=== PATIENT | female | born 1990 | race Caucasian/White ===

== ENCOUNTER 2020-05-19 17:13 | Outpatient (CLI) | payer MEDICAID ==
[~2020-05-19] VITALS: Ht 170.2 cm; Wt 98.6 kg
--- NOTE | 2020-05-19 17:20 | NUR ---
1720- Pt arrives on unit via wheelchair with complaints of an episode of 15mins of sharp abd pain. She is now having generalized abd pain. Pt into bathroom to change into gown and provide urine sample. 172- Pt into bed. EFM and TOCO on and tracing. Pt denies VB, LOF, UCs. Pt states she hasn't felt the baby move since this morning. VSS, Assessment completed. Call light in reach.
[2020-05-19 17:22] VITALS: BP 123/88; PULSE 96; TEMP 98.5
[2020-05-19] MEDS ORDERED: PROBIOTIC ACID1 EAC3 PO (17:31)
[2020-05-19] MEDS ORDERED: PRENATAL TABLET PO (17:31)
[2020-05-19 18:17] LABS: COLLECTION METHOD CLEAN CATCH
--- NOTE | 2020-05-19 18:20 | NUR ---
182- BEDSIDE SHIFT REPORT RECEIVED, CARE ASSUMED. PT SITTING UP IN BED WITH AT BEDSIDE, PLAN OF CARE REVIEWED, SVE BY THIS NURSE CLOSED/THICK/HIGH. 1849- DIFFICULT TO MONITOR DUE TO GESTATION AND MATERNAL POSITION CHANGE. NURSE AT BEDSIDE ADJUSTING MONITORS. 1854- PT UP TO BATHROOM. 1857- PT BACK IN BED. NURSE AT BEDSIDE ADJUSTING MONITORS. LOTS OF MOVEMENT NOTED. PT REPORTS IMPROVEMENT IN ABDOMINAL PAIN BUT STATES SHE DOES STILL HAVE SOME DISCOMFORT IN HER BACK. 1911- DR BETH CALLS AND IS UPDATED CHARTED IN PHYSICIAN NOTIFICATION. ORDERS RECEIVED. 1919- PT OFF MONITORS FOR DISMISSAL. 1929- DISMISSAL INSTRUCTIONS GIVEN AND PT VERBALIZES UNDERSTANDING. LABOR PRECAUTIONS DISCUSSED. PT DISMISSED TO HOME AMBULATORY ACCOMPANIED BY .
[2020-05-19 18:34] LABS: HEMOGLOBIN 10.8 g/dl (12.5-16.0); MEAN CELL VOLUME 80 fl (80.0-100.0); MEAN CORPUSCULAR HEMOGLOBIN 26 pg (27.0-31.0); MEAN CORPUSCULAR HGB CONC 32 g/dl (33.0-37.0); MEAN PLATELET VOLUME 9.1 fl (7.4-10.4); PLATELET COUNT 341 K/mm3 (130-400); REDCELL DISTRIBUTION WIDTH-CV 13.1 % (11.5-14.5)
[2020-05-19 18:37] LABS: HEMATOCRIT 33.4 % (37.0-47.0)
[2020-05-19 18:44] LABS: MUCOUS Present /lpf; PH 7 (5-8); URINE APPEARANCE Cloudy; URINE BACTERIA None Seen /hpf; URINE BILIRUBIN Negative (NEGATIVE); URINE BLOOD Negative (NEGATIVE); URINE COLOR Yellow; URINE GLUCOSE Negative (NEGATIVE); URINE KETONE Negative (NEGATIVE); URINE LEUKOCYTE ESTERASE Negative (NEGATIVE); URINE NITRATE Negative (NEGATIVE); URINE PROTEIN(semi-quant) 1+ (NEGATIVE); URINE RBC None Seen /hpf; URINE UROBILINOGEN Negative (NEGATIVE)
[2020-05-19 18:56] LABS: ALBUMIN 3.9 gm/dL (3.5-5.0); BILIRUBIN,TOTAL 0.2 mg/dL (0.0-1.0); CALCIUM 8.9 mg/dL (8.4-10.2); CREATININE, serum 0.63 (0.52-1.25); POTASSIUM 3.9 mmol/L (3.4-5.0); TOTAL PROTEIN 7.2 gm/dL (6.4-8.2)
[2020-05-19 19:34] LABS: BAND 3 % (0-10); EOSINOPHIL 3 % (0-4); LYMPHOCYTE 25 % (20.0-51.0); MICROCYTOSIS 1+; NEUTROPHILS 63 % (42.0-75.2)
[2020-05-19 19:35] LABS: BURR CELLS 2+; HYPOCHROMIA 1+; PLATELET ESTIMATE NORMAL (NORMAL)
== END 2020-05-19 19:30 | disposition home or self-care (01) ==
LOC: LDRO 17:13 → COL.ER 17:13 → EDSTATUS 17:14 → LDR 17:45 → LDRO 19:30
PROVIDERS: Obstetrics & Gynecology
DX: O26.893 Other specified pregnancy related conditions, third trimester (principal); R10.9 Unspecified abdominal pain; Z3A.28 28 weeks gestation of pregnancy; F17.210 Nicotine dependence, cigarettes, uncomplicated
CPT/HCPCS: OP

== ENCOUNTER → 2020-05-19 | Outpatient (CLI) | payer MEDICAID ==
[~2020-05-19] MED LIST: PRENATAL TABLET PO; PROBIOTIC ACID1 EAC3 PO
== END ==
LOC: DIA.ED 08:31
DX: O24.419 Gestational diabetes mellitus in pregnancy, unspecified control (principal)
CPT/HCPCS: G0108

== ENCOUNTER → 2020-05-26 | Outpatient (CLI) | payer MEDICAID ==
[~2020-05-26] MED LIST changes: +PREDNISONE20 MG PO; +PRILOSEC 20MG20 MG PO; +PROAIR HFA0.09 MG/AC IH; +PROZAC 20MG20 MG PO; +ZITHROMAX Z PA250 MG PO
== END ==
LOC: DIA.ED 08:38
DX: O24.419 Gestational diabetes mellitus in pregnancy, unspecified control (principal); Z79.4 Long term (current) use of insulin
CPT/HCPCS: G0108

== ENCOUNTER → 2020-06-04 | Outpatient (CLI) | payer MEDICAID | LOC: DIA.ED 08:21 | DX: O24.419 Gestational diabetes mellitus in pregnancy, unspecified control (principal); Z79.4 Long term (current) use of insulin | CPT/HCPCS: G0108 ==

== ENCOUNTER → 2020-06-11 | Outpatient (CLI) | payer MEDICAID | LOC: DIA.ED | DX: O24.419 Gestational diabetes mellitus in pregnancy, unspecified control (principal); Z79.4 Long term (current) use of insulin | CPT/HCPCS: G0108 ==

== ENCOUNTER → 2020-06-23 | Outpatient (CLI) | payer MEDICAID | LOC: DIA.ED | DX: O24.419 Gestational diabetes mellitus in pregnancy, unspecified control (principal); Z79.4 Long term (current) use of insulin | CPT/HCPCS: G0108 ==

== ENCOUNTER → 2020-07-30 | Outpatient (CLI) | payer MEDICAID ==
[~2020-07-30] MED LIST changes: +HUMALOGKP50/50 SQ; +IBU600 MG PO; +LANTUS SOLOS100 U/ML SQ; +PERCOCET 325 MG1 TA3 PO
== END | disposition still patient (30) ==
LOC: ZCOL.LAB 03:08
DX: Z20.822 Contact with and (suspected) exposure to COVID-19 (principal)

== ENCOUNTER 2020-07-31 12:41 | Inpatient (IN) | payer MEDICAID ==
[2020-07-31] VITALS (43 sets, daily range): BP systolic 120–1277; BP diastolic 69–104; PULSE 81–110; TEMP 97.6–98
[~2020-07-31] VITALS: Ht 170.2 cm; Wt 105.9 kg
--- NOTE | 2020-07-31 12:15 | NUR ---
1215- 38.6, G1L0 arrives on unit from office with BPP 4/8 for extended monitoring. Patient report normal movement. Denies leaking of fluids, or vaginal bleeding. Reports occ painful contractions. Oriented to room. Changes into clean gown. Patient wedge left. EFM explained and applied. VS obtained. 1240- Roles on unit and updated on patient. 1245- Plan of care reviewed with patient and spouse who verbalize understanding. IV to left wrist. Routine labs obtained via IV site. NS infusing per orderes. Assessment completed. 1255- Roles to bedside. reviews plan of care withi patient and spouse. Dr. Quinn updated on BP's. 1315- Patient to bathroom. Wedge right.
[~2020-07-31 12:41] MED LIST changes: -HUMALOGKP50/50 SQ; -IBU600 MG PO; -LANTUS SOLOS100 U/ML SQ; -PERCOCET 325 MG1 TA3 PO
[2020-07-31] MEDS ORDERED: HUMALOGKP50/50 SQ (13:03)
[2020-07-31] MEDS ORDERED: LANTUS SOLOS100 U/ML SQ (13:03)
[2020-07-31 14:05] LABS: BASO % 0.4 % (0.0-2.0); EOS % 0.4 % (0-4.0); GRAN # 5.8 (1.4-6.5); GRAN % 70.4 % (42.2-75.2); HEMOGLOBIN 10.9 g/dl (12.5-16.0); LYMPH # 1.8 (1.2-3.4); LYMPH % 21.6 % (20.0-51.0); MEAN CELL VOLUME 70 fl (80.0-100.0); MEAN CORPUSCULAR HEMOGLOBIN 21 pg (27.0-31.0); MEAN CORPUSCULAR HGB CONC 30 g/dl (33.0-37.0); MEAN PLATELET VOLUME 9.9 fl (7.4-10.4); MONO # 0.5 (0.1-0.6); MONO % 6.3 % (1.7-9.3); PLATELET COUNT 395 K/mm3 (130-400); RED BLOOD COUNT 5.14 M/mm3 (4.10-5.30); REDCELL DISTRIBUTION WIDTH-CV 15.4 % (11.5-14.5)
[2020-07-31 14:06] LABS: HEMATOCRIT 36.1 % (37.0-47.0)
--- NOTE | 2020-07-31 14:10 | NUR ---
1410- Roles at bedside. SVE per provider . Orders to start pitocin per protocol. Dr. Quinn reviews plan of care with patient and spouse who verbalize understanding. Patient may have epidural as desires per MD.
--- NOTE | 2020-07-31 15:25 | NUR ---
1525- Patient requesting epidural. Niecy Marinelli MANAGEMENT SPECIALIST notified. 1532- Niecy Marinelli MANAGEMENT SPECIALIST at bedside for epiduralplacement. Time out performed. 1549- Epidural placed and single shot by Niecy Marinelli CRNA at this time. See anesthesia record. 1555- Patient wedge left. EFM adjusted. Plan of care and safety precautions reviewed with patient who verbalizes understanding. Denies questions or needs. Call light within reach. 1620- Branham catheter placed. SVE 0.5cm by this RN. Repositioned wedge left.
--- NOTE | 2020-07-31 16:40 | NUR ---
1640- Patient calls RN to room. States she felt gush of fluid. Clear fluid noted to pad. Amnitest positive.
--- NOTE | 2020-07-31 19:00 | NUR ---
blood sugar noted at 86
--- NOTE | 2020-07-31 20:05 | NUR ---
BGM 83
--- NOTE | 2020-07-31 21:30 | NUR ---
Roles at bedside. SVE per provider closed. Orders to continue to increase pitocin up to 30mU. Start abx ancef 2g at 0430 if unchanged. Every four hours ancef 1g after initial dose. Ok to check BS every 4 hours.
[2020-08-01] VITALS (50 sets, daily range): BP systolic 120–172; BP diastolic 59–108; PULSE 77–111; TEMP 97.6–98.6
--- NOTE | 2020-08-01 06:25 | NUR ---
Bedside report received from Moon AMBRIZ. Patient anxious and emotional at this time. Patient states she has been having pain in lower back/lower abdomen with every contraction since 0400am. Denies any needs at this time due to epidural being very difficult to place and states she can tolerate at this time. Plan of care discussed. 0710: FHR baseline 145bpm. Patient turned left lateral. FHR increasing to 155-160bpm. 0730: Patient sitting up in high fowlers position. 0755: Roles at bedside and assessing patient and FHR strip. SVE per physician /- and AROM of forebag at this time. Plan of care and options discussed at this time and questions answered. See physician documentation. 0820: Patient and Spouse decide for delivery at this time and pitocin off. Plan/risks of surgery discussed. Aramis TREVINO at bedside to assess patient and epidural dosed. See anesthesia record. Patient prepped for surgery. Superpubic area trimmed and cleaned/prepped. 0840: Patient off monitor and to OR via bed. Patient assisted to OR bed and spinal attempted. Plan for general anethesia discussed and patient agrees. See anesthesia record. 0915: FHR doppler and 150bpm.
[2020-08-02 04:00] VITALS: BP 122/69; PULSE 104; TEMP 98.7
[2020-08-02 07:32] LABS: HEMATOCRIT 26.9 % (37.0-47.0); HEMOGLOBIN 8.1 g/dl (12.5-16.0)
[2020-08-02 09:21] VITALS: BP 128/93; PULSE 99; TEMP 98.4
[2020-08-02 22:00] VITALS: BP 134/88; PULSE 96; TEMP 97.8
[2020-08-03 08:03] VITALS: BP 127/78; PULSE 105; TEMP 97.4
[2020-08-03] MEDS ORDERED: PERCOCET 325 MG1 TA3 PO (10:38)
[2020-08-03] MEDS ORDERED: IBU600 MG PO (10:38)
[2020-08-03 15:00] VITALS: BP 137/79; PULSE 102; TEMP 98.7
--- NOTE | 2020-08-03 17:30 | NUR ---
Sits in shower. Percocet 7/325 mg two, ibuprofen 600 mg given per request and as ordered.
--- NOTE | 2020-08-03 18:30 | NUR ---
PT COMPLAINS OF STABBING RUQ AND BACK PAIN. HYPOACTIVE BOWELS NOTED. STATES INABILITY TO PASS GAS BUT ONE TIME THROUGHOUT THE DAY. ABDOMEN IS FIRM AND DISTENDED, TENDER TO TOUCH. WILL NOTIFY ONCALL PHYSICIAN.
[2020-08-03 18:44] VITALS: BP 144/87; PULSE 124; TEMP 98.8
--- NOTE | 2020-08-03 20:25 | NUR ---
PT STATES THAT RIGHT UPPER QUADRANT PAIN IS GETTING MORE INTENSE. PO PAIN MEDICATION NOT YET AVAILABLE. SIMETHICONE AND K-PAD GIVEN FOR PAIN. PT STATES THAT SHE HAS ATTEMPTED TO USE THE BATHROOM TWICE SINCE SUPPOSITORY WAS PLACED BUT WAS STILL UNABLE TO HAVE BM AND DENIES PASSING GAS. INSTRUCTED PT THAT WE WILL WAIT APPROXIMATELY 30 MINUTES AND ATTEMPT TO USE BATHROOM AGAIN, IF AT THAT TIME PAIN HAS NOT IMPROVED AND NO BM I WILL CALL THE ONCALL PHYSICIAN TO REEVALUATE PLAN OF CARE.
--- NOTE | 2020-08-03 20:46 | NUR ---
UPON ENTERING THE ROOM PT IS MOANING IN PAIN AND STATES THAT HER LEFT LEG IS GOING NUMB. PT HAS BEEN LAYING ON HER LEFT SIDE SINCE SUPPOSITORY WAS PLACED, NUMBNESS ATTRIBUTED TO THIS. PT STATES SHE WOULD LIKE TO ATTEMPT TO BM AT THIS TIME. ASSISTED TO BATHROOM. WILL CALL DR. BAILEY WITH UPDATE.
[2020-08-03 21:00] VITALS: BP 153/95; PULSE 126
[2020-08-03 22:10] LABS: BASO % 0.3 % (0.0-2.0); EOS % 0.4 % (0-4.0); GRAN # 8.4 (1.4-6.5); GRAN % 79.1 % (42.2-75.2); LYMPH # 1.4 (1.2-3.4); LYMPH % 13.3 % (20.0-51.0); MEAN CELL VOLUME 72 fl (80.0-100.0); MEAN CORPUSCULAR HGB CONC 30 g/dl (33.0-37.0); MEAN PLATELET VOLUME 9.6 fl (7.4-10.4); MONO # 0.6 (0.1-0.6); MONO % 5.9 % (1.7-9.3); PLATELET COUNT 343 K/mm3 (130-400); RED BLOOD COUNT 3.71 M/mm3 (4.10-5.30); REDCELL DISTRIBUTION WIDTH-CV 16.1 % (11.5-14.5)
[2020-08-03 22:13] LABS: HEMATOCRIT 26.8 % (37.0-47.0); HEMOGLOBIN 7.9 g/dl (12.5-16.0); MEAN CORPUSCULAR HEMOGLOBIN 21 pg (27.0-31.0)
[2020-08-03 22:22] LABS: ALBUMIN 3.3 gm/dL (3.5-5.0); BILIRUBIN,TOTAL 0.3 mg/dL (0.0-1.0); CALCIUM 8.8 mg/dL (8.4-10.2); CREATININE, serum 0.64 (0.52-1.25); POTASSIUM 3.9 mmol/L (3.4-5.0); TOTAL PROTEIN 6.5 gm/dL (6.4-8.2)
--- NOTE | 2020-08-03 22:30 | NUR ---
X-RAY IN ROOM FOR PORTABLE FLAT AND UPRIGHT ABDOMINAL X-RAY.
--- NOTE | 2020-08-03 22:59 | NUR ---
PT UP TO BATHROOM TO ATTEMPT BM FOLLOWING FLEETS ENEMA.
--- NOTE | 2020-08-03 23:12 | NUR ---
PT ABLE TO HAVE SMALL BM AND PASS GAS FOLLOWING FLEETS ENEMA. ABDOMEN SOFTER AND PT DENIES PAIN WITH PALPATION. BOWELS SOUNDS IMPROVED SLIGHTLY IN ALL QUADRENTS. PAIN IMPROVED FROM 8/10 TO 6/10. WILL CONTINUE TO MONITOR.
[2020-08-03 23:53] VITALS: BP 130/77; PULSE 110; TEMP 98.7
--- NOTE | 2020-08-04 02:00 | NUR ---
0200- PT CALLS OUT FOR BEEPING IV PUMP, NURSE TO BEDSIDE AND PT AND WANT TO KNOW IF THE XRAY REPORT HAS COME THROUGH AND IF PT CAN HAVE MORE PAIN MEDICATION. 0205- XRAY REPORT FINDINGS DISCUSSED WITH PT AND , QUESTIONS ANSWERED. ALSO DISCUSSED WITH PT AND THE IMPORTANCE OF AMBULATING AND LIMITING USE OF NARCOTICS DUE TO POSSIBLE ILEUS SINCE THE NARCOTICS WOULD MAKE THE ILEUS WORSE. PT AGREEABLE TO AMBULATING IN HALLS AND THEN TAKING MORPHINE FOR PAIN ONCE BACK TO BED. PT ASSISTED UP. 0210- PT AMBULATING IN HALLS WITH AND NURSE PUSHING BASSINET. PT MOANS THROUGHOUT AMBULATION. SHE MAKES IT FROM HER ROOM TO NURSING STATION, THEN BACK TO ROOM. PT ASSISTED BACK TO BED. ONCE IN BED SHE IS NO LONGER MOANING AND APPEARS TO BE IN NO DISTRESS. SHE BEGINS TEXTING ON PHONE. 0220- MORPHINE GIVEN FOR PAIN ORDERED. PT REPORTS PAIN OF 8/10 PRIOR TO ADMINISTRATION.
[2020-08-04 08:48] VITALS: BP 138/84; PULSE 107; TEMP 98.3
--- NOTE | 2020-08-04 09:24 | NUR ---
Initial visit; Patient thanked [employer]er for offering congratulations and God's blessings for the of her daughter. Pigment And Lacquer Mixer thanked Mom for choosing [facility].
[2020-08-04 18:01] VITALS: BP 134/83; PULSE 96; TEMP 97.8
[2020-08-04 21:36] VITALS: BP 139/81; PULSE 93; TEMP 98.2
[2020-08-05 08:30] VITALS: BP 132/77; PULSE 90; TEMP 98.2
--- NOTE | 2020-08-05 15:58 | NUR ---
1120 DISCHARGE INSTRUCTIONS REVIEWED WITH PATIENT. PATIENT VERBALIZED UNDERSTANDING. PATIENT WILL NOTIFY THIS RN WHEN READY TO LEAVE. 1145 ALL PERSONAL BELONGINGS GATHERED FROM PATIENT ROOM. PATIENT LEFT AMBULATORY AND IN NO APPARENT DISTRESS. PATIENT ACCOMPANIED BY SPOUSE AND THIS RN.
== END 2020-08-05 11:45 | disposition home or self-care (01) | DRG 787 ==
LOC: LDRO 12:41 → OB 13:13 → LDR 13:13 → OB 08-01 09:32
PROVIDERS: Obstetrics & Gynecology; ADMIT Obstetrics & Gynecology
PROC: 10D00Z1 Extraction of Products of Conception, Low, Open Approach (ICD-10-PCS; principal; 2020-07-31)
DX: O76 Abnormality in fetal heart rate and rhythm complicating labor and delivery (principal); O99.354 Diseases of the nervous system complicating childbirth; K56.7 Ileus, unspecified; Z37.0 Single live birth; O24.424 Gestational diabetes mellitus in childbirth, insulin controlled; G43.909 Migraine, unspecified, not intractable, without status migrainosus; O75.89 Other specified complications of labor and delivery; M79.7 Fibromyalgia; O99.63 Diseases of the digestive system complicating the puerperium; Z3A.38 38 weeks gestation of pregnancy
CPT/HCPCS: J0330; J0690; J1885; J2270; J2400; J2405; J2550; J2590; J2704; J2795; J3010; J7030; J7120

== ENCOUNTER 2022-11-16 06:46 | Inpatient (IN) | payer MEDICAID ==
[~2022-11-16] VITALS: Ht 172.7 cm; Wt 100.0 kg
[2022-11-16] VITALS (18 sets, daily range): BP systolic 95–133; BP diastolic 61–96; PULSE 73–115; TEMP 97.6–97.9
[~2022-11-16 06:46] MED LIST changes: +HUMALOGKP50/50 SQ; +IBU600 MG PO; +INSHUMULINN; +LANTUS SOLOS100 U/ML SQ; +PERCOCET 325 MG1 TA3 PO
--- NOTE | 2022-11-16 06:55 | NUR ---
PATIENT AMBULATORY TO UNIT WITH SPOUSE MAXX. PATIENT ORIENTED TO ROOM 209 AND ASSISTED INTO A GOWN. PAITENT DENIES CONTRACTIONS, LEAKING OF FLUID OR VAGINAL BLEEDING AND REPORTS GOOD MOVEMENT. ASSESSMENTS COMPLETED AND CONSENTS EXPLAINED AND SIGNED.
[2022-11-16] MEDS ORDERED: TUMS500 MG (07:11)
[2022-11-16 09:10] LABS: BASO % 0.3 % (0.0-2.0); EOS # 0.1 K/mm3 (0.0-0.7); EOS % 0.9 % (0.0-4.0); GRAN # 3.6 K/mm3 (1.4-6.5); GRAN % 62.2 % (42.2-75.2); HEMATOCRIT 33.3 % (37.0-47.0); HEMOGLOBIN 10.7 g/dl (12.5-16.0); LYMPH # 1.7 K/mm3 (1.2-3.4); LYMPH % 29.1 % (20.0-51.0); MEAN CELL VOLUME 78 fl (80.0-100.0); MEAN CORPUSCULAR HEMOGLOBIN 25 pg (27-31); MEAN CORPUSCULAR HGB CONC 32 g/dl (33.0-37.0); MEAN PLATELET VOLUME 9.6 fl (7.4-10.4); MONO # 0.4 K/mm3 (0.1-0.6); MONO % 6.8 % (1.7-9.3); PLATELET COUNT 205 K/mm3 (130-400); RED BLOOD COUNT 4.27 M/mm3 (4.10-5.30); REDCELL DISTRIBUTION WIDTH-CV 15.4 % (11.5-14.5)
--- NOTE | 2022-11-16 14:10 | NUR ---
1110- FASTING BLOOD SUGAR 102 AT THIS TIME. PATIENT ORDERED AND WAITING ON LUNCH TO ARRIVE. 1428- POSTPRANDIAL BLOOD SUGAR 159. PATIENT REPORTS HAVING 2 SMALL CANS OF COKE FOR LUNCH AND NOT FINISHING ONE UNTIL 90 MINUTES AGO. PATIENT REASSURED THAT WE WILL CONTINUE TO CHECK FASTING AND POSTPRANDIAL BLOOD SUGARS TO MONITOR THEM.
--- NOTE | 2022-11-16 16:40 | NUR ---
PATIENT REQUESTING TO ATTEMPT TO STAND AND WALK AT THIS TIME. THIS RN AT BEDSIDE TO ASSIST PATIENT. PATIENT IS ASSISTED TOT HE SIDE OF THE BED AND SITS FOR A MINUTE BEFORE ATTEMPTING TO STAND. PATIENT DOES NOT REPORT FEELING FAINT OR LIGHTHEADED AT THIS TIME. ABDOMINAL BINDER ADJUSTED TO PROVIDE MORE SUPPORT TO INCISION. PATIENT AMBULATES TO THE RESTROOM WITH LITTLE ASSISTANCE. [place] CATHETER IS REMOVED AT THIS TIME AND PERICARE IS PROVIDED. PATIENT IS ASSISTED BACK TO BED.
--- NOTE | 2022-11-16 17:15 | NUR ---
PATIENT FASTING BLOOD SUGAR 132 AT THIS TIME. PATIENT AWARE OF RESULT. ORDER STATES TO CALL IF BLOOD SUGAR IS OVER 200.
[2022-11-17 01:15] VITALS: BP 126/79; PULSE 78; TEMP 97.8
[2022-11-17 04:45] VITALS: BP 119/74; PULSE 81; TEMP 97.7
[2022-11-17 07:15] VITALS: BP 122/80; PULSE 81; TEMP 97.7
--- NOTE | 2022-11-17 09:17 | NUR ---
Initial visit; Parents thanked Pumper Gager for offering congratulations and God's blessings for the of their daughter. Pumper Gager thanked family for choosing our hospital.
[2022-11-17 17:06] VITALS: BP 135/77; PULSE 77; TEMP 97.2
[2022-11-17 20:00] VITALS: BP 124/78; PULSE 80; TEMP 97.9
--- NOTE | 2022-11-17 20:15 | NUR ---
Spouse asks "can she have some GasX or something like that? when we had our last baby we had to stay longer because she hadn't passed gas. Pt denies passing gas, also states "not really having any stomach pains either. Simethicaone given. 2100 Pt up ambulating in hallway,
[2022-11-18 07:26] VITALS: BP 130/79; PULSE 81; TEMP 98.2
[2022-11-18] MEDS ORDERED: IBU800 M1 PO (08:31)
[2022-11-18] MEDS ORDERED: ROXICODONE 55 MG/TAB PO (08:32)
[2022-11-18] MEDS ORDERED: TYLENOL 500MG500 MG PO (08:32)
== END 2022-11-18 14:56 | disposition home or self-care (01) | DRG 788 ==
LOC: OB 06:46
PROVIDERS: ADMIT Obstetrics & Gynecology
PROC: 10D00Z1 Extraction of Products of Conception, Low, Open Approach (ICD-10-PCS; principal; 2022-11-16)
DX: O34.211 Maternal care for low transverse scar from previous cesarean delivery (principal); Z37.0 Single live birth; O24.424 Gestational diabetes mellitus in childbirth, insulin controlled; O99.214 Obesity complicating childbirth; O69.81X0 Labor and delivery complicated by cord around neck, without compression, not applicable or unspecified; Z3A.39 39 weeks gestation of pregnancy
CPT/HCPCS: J0690; J1885; J2370; J2405; J2590; J7120